=== PATIENT | female | born 1995 | race Caucasian/White ===

== ENCOUNTER 2019-07-16 02:34 | Inpatient (IN) ==
[2019-07-16] MEDS ORDERED: NALOXONE 0.4 MG/1 ML VIAL IVP PRN (03:23)
[2019-07-16] MEDS ORDERED: FAMOTIDINE 20 MG/2 ML VIAL IVP PRN ×2 (03:23)
[2019-07-16] MEDS ORDERED: BUTORPHANOL TARTRATE 2 MG/1 ML VIAL IVP PRN (03:23)
[2019-07-16] MEDS ORDERED: Metoclopramide Inj 10 MG/2 ML VIAL IV PRN (03:23)
[2019-07-16] MEDS ORDERED: CITRIC ACID/SODIUM CITRATE 30 ML CUP PO PRN (03:23)
[2019-07-16] MEDS ORDERED: Phenylephrine Inj 50 MCG in Sodium Chloride 0.9% vial 0.5 ML IVP PRN (03:23)
[2019-07-16] MEDS ORDERED: fentaNYL Inj 100 MCG/2 ML VIAL IVP PRN (03:23)
[2019-07-16] MEDS ORDERED: CALCIUM CARBONATE 500 MG (TUMS) CHEWABLE TABLET PO PRN (03:23)
[2019-07-16] MEDS ORDERED: diphenhydrAMINE 50 MG/1 ML VIAL IVP PRN (03:23)
[2019-07-16] MEDS ORDERED: Lidocaine 1% 10 MG/ML - 20 ML VIAL SUBCUT PRN (03:23)
[2019-07-16] MEDS ORDERED: Carboprost Inj 250 MCG/ML AMP IM PRN (03:23)
[2019-07-16] MEDS ORDERED: Naloxone Inj 0.01 MG in Sodium Chloride 0.9% vial 1 ML IVP PRN (03:23)
[2019-07-16] MEDS ORDERED: LIDOCAINE HCL 2 % 10 ML JELLY URO-JECT TOPICAL PRN (03:23)
[2019-07-16] MEDS ORDERED: OXYTOCIN 10 UNIT/1 ML IM PRN (03:23)
[2019-07-16] MEDS ORDERED: METHYLERGONOVINE MALEATE 0.2 MG/1 ML VIAL IM PRN (03:23)
[2019-07-16] MEDS ORDERED: TERBUTALINE SULFATE 1 MG/1 ML SDV SUBCUT PRN (03:23)
[2019-07-16] MEDS ORDERED: MISOPROSTOL 200 MCG TABLET RECTAL PRN (03:23)
[2019-07-16] MEDS ORDERED: ONDANSETRON 4 MG/2 ML VIAL IVP PRN (03:23)
[2019-07-16] MEDS ORDERED: CefOXitin Inj 2 GM in Sodium Chloride 0.9% 100 ML IV PRN (03:23)
[2019-07-16] MEDS ORDERED: LIDOCAINE W/ SODIUM BICARB 0.5 ML SYR SUBD PRN (03:23)
[2019-07-16] MEDS ORDERED: Nalbuphine Inj 20 MG/ML Ampule IVP PRN (03:23)
[2019-07-16] MEDS ORDERED: Oxytocin 20 Units + LR 20 UNIT/1,000 ML BAG IV SCH (03:30)
[2019-07-16] MEDS ORDERED: Lactated Ringers-OB Dept 1,000 ML PRIMARY IV SCH (03:30)
[2019-07-16 04:22] LABS: Hematocrit [HCT] 40.3 % (37.0-47.0); Hemoglobin [HGB] 13.3 g/dL (12.0-16.0); MEAN CORPUSCULAR VOLUME 90.8 FL (81-99); MEAN PLATELET VOLUME 11.2 FL (7.4-12.2); RED BLOOD COUNT 4.44 10^6/uL (4.20-5.40)
[2019-07-16 08:46] VITALS: TEMP 98.1
[2019-07-16 09:46] VITALS: BP 121/70; RESP 21; O2SAT 100
[2019-07-16] MEDS ORDERED: Lactated Ringers 1,000 ML PRIMARY IV ONE (12:17)
== END 2019-07-16 10:18 | disposition short-term general hospital (02) | DRG 833 ==
LOC: OBOP 02:34 → OBIP 03:24
PROVIDERS: ADMIT Obstetrics & Gynecology; ATTEND Obstetrics & Gynecology